=== PATIENT | male | born 1995 | race African-American/Black ===

== ENCOUNTER 2018-12-11 21:55 | Emergency (ER) | payer SELFPAY ==
[~2018-12-11] VITALS: Ht 177.8 cm; Wt 82.0 kg
[2018-12-11] MEDS ORDERED: LIDOCAINE HCL/EPINEPHRINE 1%-EPI 1:100,000 20 ML VIAL INFIL ONE (22:45)
[2018-12-11] MEDS ORDERED: ACETAMINOPHEN 325MG TABLET PO ONE (22:45)
[2018-12-12] MEDS ORDERED: TETANUS, DIPHTHERIA, PERTUSSIS VAC/PF 0.5ML (>7YR OLD) IM ONE
[2018-12-12 00:19] VITALS: BP 114/65
== END 2018-12-12 00:23 | disposition home or self-care (01) ==
LOC: ER 21:55
DX: S01.112A Laceration without foreign body of left eyelid and periocular area, initial encounter (principal); H05.222 Edema of left orbit; F12.10 Cannabis abuse, uncomplicated; Y08.89XA Assault by other specified means, initial encounter; Y93.89 Activity, other specified; Y92.89 Other specified places as the place of occurrence of the external cause; Y99.8 Other external cause status
CPT/HCPCS: 12013; 70450; 70486; 90471; 90715; 99284; J3490; Z7610